=== PATIENT | female | born 1960 | race African-American/Black ===

== ENCOUNTER 2017-09-17 13:13 | Inpatient (IN) | payer MEDICAID ==
[~2017-09-17] VITALS: Ht 152.4 cm; Wt 44.8 kg
[2017-09-17] MEDS ORDERED: SODIUM CHLORIDE 0.9% 1,000 ML IVB ONE (13:47)
[2017-09-17] MEDS ORDERED: MORPHINE SULF INJ 2 MG/ML SYRINGE 1ML IV ONE (14:15)
[2017-09-17] MEDS ORDERED: ONDANSETRON HCL 4 MG/2 ML VIAL IV ONE (14:15)
[2017-09-17 14:20] LABS: Basophils # (auto) 0.1 uL; Eosinophils # (auto) 0 uL; Eosinophils % (auto) 0.3 % (0.0-7.0); Hematocrit 42.4 % (36.0-46.0); Hemoglobin 14.3 g/dL (12.2-16.2); Lymphocytes % (auto) 35.5 % (10.0-50.0); Mean Corpuscular Hemoglobin 31.7 pg (28.0-32.0); Mean Corpuscular Hgb Conc. 33.7 g/dL (32.0-36.0); Mean Corpuscular Volume 94.1 fL (80.0-100.0); Monocytes # (auto) 0.3 uL; Monocytes % (auto) 5.4 % (0.0-12.0); Neutrophils # (auto) 3.2 uL; Neutrophils % (auto) 57.8 % (37.0-80.0); Nucleated Red Blood Cells % 0.2 %; Platelet Count (auto) 280 10^3/uL (140-450); Red Cell Distribution Width 15.5 % (11.8-14.3); White Blood Cell 5.6 10^3/uL (4.4-10.8)
[2017-09-17 14:34] LABS: Albumin 4.2 g/dL (3.4-5.0); BUN/Creatinine Ratio 21.9; Bilirubin, Total 0.8 mg/dL (0.2-1.0); Calcium 9.7 mg/dL (8.5-10.1); Total Protein 8.3 g/dL (6.4-8.2)
[2017-09-17 14:36] LABS: INR 1.05 (0.9-1.15); Partial Thromboplastin Time 22.5 sec (23.78-33.04); Prothrombin Time 11.2 sec (9.27-12.13)
[2017-09-17 14:38] LABS: Potassium 2.6 mmol/L (3.5-5.1)
[2017-09-17 14:42] LABS: Magnesium 2.1 mg/dL (1.6-2.6)
[2017-09-17 14:45] LABS: Urine Bacteria NONE SEEN /hpf (None Seen); Urine Blood Negative /uL (Negative); Urine Mucus FEW (None Seen); Urine WBC 2 /hpf (0 - 5)
[2017-09-17 14:46] LABS: Amylase 57 U/L (25-115); Lipase 69 U/L (73-393)
[2017-09-17 15:56] LABS: Lactic Acid w/Reflex 2.5 mmol/L (0.4-2.0)
[2017-09-17] MEDS ORDERED: POTASSIUM CHL 20 Meq TABLET PO ONE ×2 (16:15)
[2017-09-17] MEDS ORDERED: MORPHINE SULF INJ 2 MG/ML SYRINGE 1ML IV PRN (17:45)
[2017-09-17] MEDS ORDERED: DOCUSATE SOD 100 MG CAP PO PRN (17:45)
[2017-09-17] MEDS ORDERED: LEVOFLOXACIN 500MG 100 ML IV ONE (17:45)
[2017-09-17] MEDS ORDERED: NITROGLYCERIN 0.4 MG SL TAB SL PRN (17:45)
[2017-09-17] MEDS ORDERED: TRIAMTERENE/HCTZ 37.5/25 MG CAP/TAB PO ONE (18:00)
[2017-09-17 18:57] LABS: Alcohol, Urine < 3.0 mg/dL (0-5); Amphetamine Screen, Urine NEGATIVE (NEGATIVE); Barbiturate Scree,Urine NEGATIVE (NEGATIVE); Benzodiazephine Screen, Urine POSITIVE (NEGATIVE); Cannabinoid Screen, Urine POSITIVE (NEGATIVE); Cocaine Screen, Urine NEGATIVE (NEGATIVE); Opiate Scree,Urine POSITIVE (NEGATIVE); Phencyclidine Screen, Urine NEGATIVE (NEGATIVE)
[2017-09-17] MEDS: ACETAMINOPHEN 325 MG TAB PO PRN ×2 (20:05→21:01)
[2017-09-17] MEDS: ONDANSETRON HCL 4 MG/2 ML VIAL IV PRN ×2 (20:11→21:00)
[2017-09-17 21:42] LABS: BUN/Creatinine Ratio 17.6; Calcium 8.2 mg/dL (8.5-10.1)
[2017-09-17 21:46] LABS: Lactic Acid w/Reflex 2.2 mmol/L (0.4-2.0)
[2017-09-17 22:00] VITALS: BP 140/75
[2017-09-17 22:30] VITALS: BP 140/75
[2017-09-17] MEDS: metroNIDAZOLE 500MG/100ML 100 ML IV SCH (22:36)
[2017-09-17] MEDS: FAMOTIDINE 20 MG TAB PO SCH (22:36)
[2017-09-17] MEDS: MORPHINE SULFATE 4 MG/ML SYR/VIAL IV PRN (22:37)
[2017-09-17] MEDS ORDERED: TRIA37.561 PO (23:27)
[2017-09-17] MEDS ORDERED: HYDR-4683 PO ×2 (23:27)
[2017-09-17] MEDS ORDERED: POTA10TA51 PO (23:27)
[2017-09-17] MEDS ORDERED: AML5T PO (23:27)
[2017-09-18] MEDS: HYDROcodone-ACET 5/325MG TAB PO PRN ×2 (01:19→20:35)
[2017-09-18 05:00] VITALS: BP 124/77
[2017-09-18] MEDS: MORPHINE SULFATE 4 MG/ML SYR/VIAL IV PRN ×3 (05:00→14:41)
[2017-09-18 05:43] LABS: Basophils # (auto) 0 uL; Basophils % (auto) 0.3 % (0.0-2.0); Eosinophils # (auto) 0 uL; Eosinophils % (auto) 0.4 % (0.0-7.0); Hematocrit 37.9 % (36.0-46.0); Hemoglobin 12.9 g/dL (12.2-16.2); Lymphocytes # (auto) 2.5 uL; Lymphocytes % (auto) 47.2 % (10.0-50.0); Mean Corpuscular Hemoglobin 32.1 pg (28.0-32.0); Mean Corpuscular Volume 94.5 fL (80.0-100.0); Monocytes # (auto) 0.4 uL; Monocytes % (auto) 7.8 % (0.0-12.0); Neutrophils # (auto) 2.3 uL; Neutrophils % (auto) 44.3 % (37.0-80.0); Nucleated Red Blood Cells % 0.1 %; Platelet Count (auto) 254 10^3/uL (140-450); Red Blood Cells 4.01 10^6/uL (4.0-5.20); Red Cell Distribution Width 15.4 % (11.8-14.3); White Blood Cell 5.3 10^3/uL (4.4-10.8)
[2017-09-18] MEDS: metroNIDAZOLE 500MG/100ML 100 ML IV SCH ×3 (05:46→22:01)
[2017-09-18 06:08] LABS: Albumin 3.5 g/dL (3.4-5.0); BUN/Creatinine Ratio 12.1; Calcium 8.7 mg/dL (8.5-10.1)
[2017-09-18 06:10] LABS: Potassium 2.7 mmol/L (3.5-5.1)
[2017-09-18 06:11] LABS: Bilirubin, Total 0.8 mg/dL (0.2-1.0)
[2017-09-18] MEDS ORDERED: POTASSIUM CHL 20 Meq TABLET PO ONE (07:00)
[2017-09-18 08:52] VITALS: BP 132/80
[2017-09-18] MEDS: LEVOFLOXACIN 500MG 100 ML IV SCH (09:52)
[2017-09-18] MEDS: ONDANSETRON HCL 4 MG/2 ML VIAL IV PRN ×2 (09:53→14:40)
[2017-09-18] MEDS: amLODIPine BESYLATE 5 MG TAB PO SCH (09:55)
[2017-09-18] MEDS: TRIAMTERENE/HCTZ 37.5/25 MG CAP/TAB PO SCH (09:56)
[2017-09-18] MEDS: MULTIPLE VITAMIN TAB PO SCH (09:57)
[2017-09-18] MEDS: FAMOTIDINE 20 MG TAB PO SCH (09:57)
[2017-09-18 13:00] VITALS: BP 136/84
[2017-09-18] MEDS ORDERED: PANTOPRAZOLE 40 MG TAB PO ONE (14:45)
[2017-09-18 17:00] VITALS: BP 108/78
[2017-09-18] MEDS ORDERED: LORazepam 2MG/ML-1ML VIAL IV PRN (17:00)
[2017-09-18 21:38] VITALS: BP 109/65
[2017-09-18] MEDS: PANTOPRAZOLE 40 MG TAB PO SCH (22:01)
[2017-09-18] MEDS: ZOLPIDEM TARTRATE 5 MG TAB PO PRN (22:22)
[2017-09-19] MEDS: MORPHINE SULFATE 4 MG/ML SYR/VIAL IV PRN ×4 (02:53→21:48)
[2017-09-19 05:00] VITALS: BP 119/77
[2017-09-19] MEDS: metroNIDAZOLE 500MG/100ML 100 ML IV SCH (05:47)
[2017-09-19 07:57] LABS: Lactic Acid w/Reflex 3.9 mmol/L (0.4-2.0)
[2017-09-19 07:57] LABS: BUN/Creatinine Ratio 7.1; Calcium 8.9 mg/dL (8.5-10.1); Magnesium 2.1 mg/dL (1.6-2.6); Potassium 3.4 mmol/L (3.5-5.1)
[2017-09-19 09:00] VITALS: BP 104/69
[2017-09-19] MEDS: PANTOPRAZOLE 40 MG TAB PO SCH ×2 (10:07→21:48)
[2017-09-19] MEDS: amLODIPine BESYLATE 5 MG TAB PO SCH (10:08)
[2017-09-19] MEDS: MULTIPLE VITAMIN TAB PO SCH (10:08)
[2017-09-19] MEDS: TRIAMTERENE/HCTZ 37.5/25 MG CAP/TAB PO SCH (10:08)
[2017-09-19] MEDS: LEVOFLOXACIN 500MG 100 ML IV SCH (10:09)
[2017-09-19 13:00] VITALS: BP 114/73
[2017-09-19 17:00] VITALS: BP 114/78
[2017-09-19] MEDS: ONDANSETRON HCL 4 MG/2 ML VIAL IV PRN (21:48)
[2017-09-19 21:51] VITALS: BP 106/58
[2017-09-20] MEDS: ZOLPIDEM TARTRATE 5 MG TAB PO PRN (00:32)
[2017-09-20 04:42] VITALS: BP 110/75
[2017-09-20] MEDS: HYDROcodone-ACET 5/325MG TAB PO PRN (04:42)
[2017-09-20] MEDS: MORPHINE SULFATE 4 MG/ML SYR/VIAL IV PRN (08:59)
[2017-09-20 09:10] VITALS: BP 103/72
[2017-09-20] MEDS ORDERED: PANT40TA2 PO (09:46)
[2017-09-20] MEDS ORDERED: NITR-48 PO (09:46)
[2017-09-20] MEDS ORDERED: NITROFURANTOIN (MONO) 100 mg CAP PO ONE (10:00)
[2017-09-20] MEDS: TRIAMTERENE/HCTZ 37.5/25 MG CAP/TAB PO SCH (10:00)
[2017-09-20] MEDS: MULTIPLE VITAMIN TAB PO SCH (10:00)
[2017-09-20] MEDS: amLODIPine BESYLATE 5 MG TAB PO SCH (10:00)
[2017-09-20 10:48] VITALS: BP 104/69
[2017-09-20] MEDS: PANTOPRAZOLE 40 MG TAB PO SCH (11:57)
[2017-09-20 12:41] VITALS: BP 95/69
== END 2017-09-20 14:54 | disposition home health service (06) | DRG 720 ==
LOC: ER 13:13 → TELE 13:14 → TELE-CENTR 21:37
PROVIDERS: ADMIT Internal Medicine; ATTEND Internal Medicine
PROC: 4A00X4Z Measurement of Central Nervous Electrical Activity, External Approach (ICD-10-PCS; principal; 2017-09-19)
DX: A41.9 Sepsis, unspecified organism (principal); G93.41 Metabolic encephalopathy; I50.43 Acute on chronic combined systolic (congestive) and diastolic (congestive) heart failure; M84.48XA Pathological fracture, other site, initial encounter for fracture; I11.0 Hypertensive heart disease with heart failure; E87.6 Hypokalemia; J98.11 Atelectasis; N39.0 Urinary tract infection, site not specified; J44.9 Chronic obstructive pulmonary disease, unspecified; K40.90 Unilateral inguinal hernia, without obstruction or gangrene, not specified as recurrent; G89.4 Chronic pain syndrome; A08.4 Viral intestinal infection, unspecified; B95.7 Other staphylococcus as the cause of diseases classified elsewhere; N20.0 Calculus of kidney; Z83.3 Family history of diabetes mellitus; F11.10 Opioid abuse, uncomplicated; F12.10 Cannabis abuse, uncomplicated; F13.10 Sedative, hypnotic or anxiolytic abuse, uncomplicated; Z88.0 Allergy status to penicillin; R31.9 Hematuria, unspecified; I67.2 Cerebral atherosclerosis; W18.39XA Other fall on same level, initial encounter; Y93.89 Activity, other specified; Y92.89 Other specified places as the place of occurrence of the external cause; Y99.8 Other external cause status
CPT/HCPCS: 36415; 51702; 70450; 71045; 71101; 71111; 72146; 72148; 74176; 80048; 80053; 80061; 80307; 81001; 82140; 82150; 83605; 83690; 83735; 84132; 84484; 85025; 85610; 85730; 87040; 87086; 87088; 87186; 93005; 93306; 94761; 95819; 96361; 96365; 96366; 96375; 96376; 97116; 97163; 97530; J1956; J2405; J3490

== ENCOUNTER 2017-10-22 09:13 | Inpatient (IN) | payer MEDICAID ==
[~2017-10-22] VITALS: Ht 160 cm; Wt 44.8 kg
[~2017-10-22 09:13] MED LIST: AML5T PO; HYDR-4683 PO; NITR100C44 PO; PANT40TA2 PO; POTA10TA51 PO; TRIA37.561 PO
[2017-10-22 10:54] LABS: Basophils # (auto) 0 uL; Basophils % (auto) 0.7 % (0.0-2.0); Eosinophils # (auto) 0 uL; Eosinophils % (auto) 0.2 % (0.0-7.0); Hematocrit 36.6 % (36.0-46.0); Lymphocytes # (auto) 2.3 uL; Lymphocytes % (auto) 48.3 % (10.0-50.0); Mean Corpuscular Hemoglobin 31.7 pg (28.0-32.0); Mean Corpuscular Hgb Conc. 32.7 g/dL (32.0-36.0); Mean Corpuscular Volume 96.8 fL (80.0-100.0); Monocytes # (auto) 0.4 uL; Monocytes % (auto) 7.8 % (0.0-12.0); Nucleated Red Blood Cells % 0.1 %; Platelet Count (auto) 275 10^3/uL (140-450); Red Blood Cells 3.79 10^6/uL (4.0-5.20); Red Cell Distribution Width 15.9 % (11.8-14.3); White Blood Cell 4.7 10^3/uL (4.4-10.8)
[2017-10-22 11:09] LABS: Partial Thromboplastin Time 24.1 sec (23.78-33.04); Prothrombin Time 10.7 sec (9.27-12.13)
[2017-10-22 11:17] LABS: Alanine Aminotransferase 30 U/L (13-56); Albumin 3.3 g/dL (3.4-5.0); Alkaline Phosphatase 50 U/L (45-117); Amylase 53 U/L (25-115); Anion Gap 2 (5-15); Aspartate Aminotransferase 24 U/L (15-37); BUN/Creatinine Ratio 12.9; Bilirubin, Total 0.2 mg/dL (0.2-1.0); Blood Urea Nitrogen 9 mg/dL (7-18); Calcium 8.4 mg/dL (8.5-10.1); Carbon Dioxide 32 mmol/L (21-32); Chloride 110 mmol/L (98-107); GFR African American 111 mL/min; GFR Non-African American 92 mL/min; Glucose 85 mg/dL (74-106); Lipase 149 U/L (73-393); Magnesium 2.9 mg/dL (1.6-2.6); Potassium 3.3 mmol/L (3.5-5.1); Sodium 144 mmol/L (136-145); Total Protein 6.7 g/dL (6.4-8.2)
[2017-10-22] MEDS ORDERED: SODIUM CHLORIDE 0.9% 1,000 ML IV ONE (11:29)
[2017-10-22] MEDS ORDERED: SODIUM CHLORIDE 0.9% 500 ML IVB ONE (11:29)
[2017-10-22] MEDS ORDERED: PROMETHAZINE HCL 25 MG/ML 1ML IV PRN (11:30)
[2017-10-22] MEDS ORDERED: KETOROLAC TROMETH 30 MG/ML 1ML VIAL IV ONE (11:30)
[2017-10-22] MEDS ORDERED: POTASSIUM EFFERVESENT TAB 25 MEQ PO ONE (12:15)
[2017-10-22 16:14] LABS: Urine Bacteria FEW /hpf (None Seen); Urine Blood Negative /uL (Negative); Urine Specific Gravity 1.006 (1.001-1.035); Urine WBC <1 /hpf (0 - 5)
[2017-10-22] MEDS ORDERED: HYDROcodone-ACET 7.5/325MG TAB PO ONE (17:45)
[2017-10-22] MEDS ORDERED: cefTRIAXone 1GM/10ml IVPUSH 10 ML IV ONE (18:30)
[2017-10-22] MEDS ORDERED: FAMOTIDINE 20 MG TAB PO ONE (18:45)
[2017-10-22] MEDS ORDERED: cloNIDine HCL 0.1 MG TAB PO PRN (18:45)
[2017-10-22] MEDS ORDERED: PANTOPRAZOLE 40 MG TAB PO ONE (18:45)
[2017-10-22] MEDS ORDERED: ACETAMINOPHEN 325 MG TAB PO PRN (19:00)
[2017-10-22] MEDS ORDERED: MORPHINE SULF INJ 2 MG/ML SYRINGE 1ML IV PRN ×2 (19:00)
[2017-10-22] MEDS ORDERED: NITROGLYCERIN 0.4 MG SL TAB SL PRN (19:00)
[2017-10-22] MEDS ORDERED: LORazepam 2MG/ML-1ML VIAL IV PRN (19:00)
[2017-10-22] MEDS: SODIUM CHLORIDE 0.9% 1,000 ML IV SCH (19:01)
[2017-10-22] MEDS: ONDANSETRON HCL 4 MG/2 ML VIAL IV PRN (20:28)
[2017-10-22 22:00] VITALS: BP 146/92
[2017-10-22] MEDS ORDERED: DIA5T PO (23:09)
[2017-10-23] VITALS (7 sets, daily range): BP systolic 112–146; BP diastolic 56–94
[2017-10-23] MEDS: IPRATROPIUM BROM 0.5 MG/2.5ML INH SOL NEB SCH ×5 (00:42→23:11)
[2017-10-23] MEDS: ALBUTEROL SULF 2.5 MG/0.5ML(0.5%) NEB SOLN NEB SCH ×5 (00:42→23:11)
[2017-10-23] MEDS ORDERED: KETOROLAC TROMETH 30 MG/ML 1ML VIAL IV ONE ×2 (04:00→04:15)
[2017-10-23] MEDS: SODIUM CHLORIDE 0.9% 1,000 ML IV SCH ×3 (04:33→21:38)
[2017-10-23] MEDS: ONDANSETRON HCL 4 MG/2 ML VIAL IV PRN ×2 (04:33→16:53)
[2017-10-23 07:27] LABS: Hematocrit 40.2 % (36.0-46.0); Hemoglobin 13.3 g/dL (12.2-16.2); Mean Corpuscular Hemoglobin 31.7 pg (28.0-32.0); Mean Corpuscular Volume 96.2 fL (80.0-100.0); Platelet Count (auto) 241 10^3/uL (140-450); Red Blood Cells 4.18 10^6/uL (4.0-5.20); Red Cell Distribution Width 15.9 % (11.8-14.3); White Blood Cell 5.5 10^3/uL (4.4-10.8)
[2017-10-23 07:36] LABS: Band Neutrophils % (manual) 0; Basophils % (manual) 0 (0.0-2.0); Blast Cells 0; Eosinophils % (manual) 0 (0-7); Metamyelocytes % 0; Myelocytes % 0; Promyelocytes % 0; Reactive Lymphocytes 0
[2017-10-23 07:51] LABS: Lymphocytes % (manual) 65 (10.0-50.0); Monocytes % (manual) 4 (0-12)
[2017-10-23] MEDS ORDERED: cefTRIAXone 1GM/10ml IVPUSH 10 ML IV SCH (09:00)
[2017-10-23] MEDS: TRIAMTERENE/HCTZ 37.5/25 MG CAP/TAB PO SCH (09:53)
[2017-10-23] MEDS: HYDROcodone-ACET 5/325MG TAB PO PRN ×2 (09:55→13:09)
[2017-10-23] MEDS ORDERED: FAMOTIDINE 20 MG TAB PO SCH (10:00)
[2017-10-23] MEDS ORDERED: PANTOPRAZOLE 40 MG TAB PO SCH (10:00)
[2017-10-23] MEDS: MULTIPLE VITAMIN TAB PO SCH (10:01)
[2017-10-23] MEDS: amLODIPine BESYLATE 5 MG TAB PO SCH (10:01)
[2017-10-23] MEDS: POTASSIUM CHL 10 Meq TABLET PO SCH (10:02)
[2017-10-23] MEDS ORDERED: GASTROGRAFIN 30 ML SOL ONE (10:42)
[2017-10-23] MEDS ORDERED: IOHEXOL 300 MG/ML 100ML BOTTLE IJ ONE (10:43)
[2017-10-23 13:11] LABS: Anion Gap 7 (5-15); BUN/Creatinine Ratio 11.3; Blood Urea Nitrogen 7 mg/dL (7-18); Carbon Dioxide 28 mmol/L (21-32); Chloride 103 mmol/L (98-107); GFR African American 128 mL/min; GFR Non-African American 105 mL/min; Glucose 78 mg/dL (74-106); Potassium 4.5 mmol/L (3.5-5.1); Sodium 138 mmol/L (136-145)
[2017-10-23 13:14] LABS: Alanine Aminotransferase 30 U/L (13-56); Albumin 3.6 g/dL (3.4-5.0); Alkaline Phosphatase 54 U/L (45-117); Aspartate Aminotransferase 20 U/L (15-37); Bilirubin, Total 0.4 mg/dL (0.2-1.0); Calcium 8.8 mg/dL (8.5-10.1); Total Protein 7.3 g/dL (6.4-8.2)
[2017-10-23] MEDS: ACETAMINOPHEN/CODEINE#3 (300/30mg) TAB PO PRN (16:52)
[2017-10-23] MEDS: PANTOPRAZOLE 40 MG TAB PO SCH (21:38)
[2017-10-24] MEDS: ACETAMINOPHEN/CODEINE#3 (300/30mg) TAB PO PRN ×3 (00:13→15:57)
[2017-10-24] MEDS: ONDANSETRON HCL 4 MG/2 ML VIAL IV PRN ×4 (00:13→20:18)
[2017-10-24 04:55] VITALS: BP 102/66
[2017-10-24] MEDS: ALBUTEROL SULF 2.5 MG/0.5ML(0.5%) NEB SOLN NEB SCH ×3 (05:56→19:45)
[2017-10-24] MEDS: IPRATROPIUM BROM 0.5 MG/2.5ML INH SOL NEB SCH ×3 (05:56→19:45)
[2017-10-24 06:20] LABS: Basophils # (auto) 0 uL; Basophils % (auto) 0.7 % (0.0-2.0); Eosinophils # (auto) 0 uL; Eosinophils % (auto) 0.3 % (0.0-7.0); Hematocrit 38.5 % (36.0-46.0); Lymphocytes % (auto) 51.6 % (10.0-50.0); Mean Corpuscular Hemoglobin 32.8 pg (28.0-32.0); Mean Corpuscular Hgb Conc. 33.8 g/dL (32.0-36.0); Monocytes # (auto) 0.3 uL; Monocytes % (auto) 7.3 % (0.0-12.0); Neutrophils # (auto) 1.5 uL; Neutrophils % (auto) 40.1 % (37.0-80.0); Nucleated Red Blood Cells % 0.4 %; Platelet Count (auto) 264 10^3/uL (140-450); Red Blood Cells 3.97 10^6/uL (4.0-5.20); Red Cell Distribution Width 15.9 % (11.8-14.3); White Blood Cell 3.8 10^3/uL (4.4-10.8)
[2017-10-24 06:41] LABS: BUN/Creatinine Ratio 8.1; Calcium 8.7 mg/dL (8.5-10.1); Potassium 4.3 mmol/L (3.5-5.1)
[2017-10-24] MEDS: SODIUM CHLORIDE 0.9% 1,000 ML IV SCH ×3 (07:05→20:18)
[2017-10-24 09:00] VITALS: BP 127/79
[2017-10-24] MEDS: POTASSIUM CHL 10 Meq TABLET PO SCH (09:29)
[2017-10-24] MEDS: PANTOPRAZOLE 40 MG TAB PO SCH ×2 (09:29→20:17)
[2017-10-24] MEDS: amLODIPine BESYLATE 5 MG TAB PO SCH (09:30)
[2017-10-24] MEDS: MULTIPLE VITAMIN TAB PO SCH (09:30)
[2017-10-24] MEDS: TRIAMTERENE/HCTZ 37.5/25 MG CAP/TAB PO SCH (09:33)
[2017-10-24] MEDS ORDERED: GOLYTELY 4L KIT PO ONE (12:00)
[2017-10-24 17:00] VITALS: BP 156/95
[2017-10-24] MEDS: TEMAZEPAM 15 MG CAP PO PRN (20:17)
[2017-10-24 22:09] VITALS: BP 122/75
[2017-10-25] MEDS: ALBUTEROL SULF 2.5 MG/0.5ML(0.5%) NEB SOLN NEB SCH ×3 (01:16→11:25)
[2017-10-25] MEDS: IPRATROPIUM BROM 0.5 MG/2.5ML INH SOL NEB SCH ×4 (01:16→20:03)
[2017-10-25 04:46] VITALS: BP 106/63
[2017-10-25] MEDS: SODIUM CHLORIDE 0.9% 1,000 ML IV SCH (05:37)
[2017-10-25] MEDS: ACETAMINOPHEN/CODEINE#3 (300/30mg) TAB PO PRN ×3 (07:46→21:39)
[2017-10-25] MEDS: ONDANSETRON HCL 4 MG/2 ML VIAL IV PRN ×4 (07:47→21:38)
[2017-10-25 07:54] LABS: Basophils # (auto) 0 uL; Basophils % (auto) 1.1 % (0.0-2.0); Eosinophils # (auto) 0 uL; Eosinophils % (auto) 0.4 % (0.0-7.0); Hematocrit 40.3 % (36.0-46.0); Hemoglobin 13.5 g/dL (12.2-16.2); Lymphocytes # (auto) 1.6 uL; Lymphocytes % (auto) 41.6 % (10.0-50.0); Mean Corpuscular Hemoglobin 32.9 pg (28.0-32.0); Mean Corpuscular Hgb Conc. 33.5 g/dL (32.0-36.0); Mean Corpuscular Volume 98.2 fL (80.0-100.0); Monocytes # (auto) 0.2 uL; Monocytes % (auto) 6.2 % (0.0-12.0); Neutrophils % (auto) 50.7 % (37.0-80.0); Nucleated Red Blood Cells % 0.1 %; Platelet Count (auto) 292 10^3/uL (140-450); Red Cell Distribution Width 16.1 % (11.8-14.3); White Blood Cell 3.9 10^3/uL (4.4-10.8)
[2017-10-25 08:08] LABS: BUN/Creatinine Ratio 5.6; Calcium 9.1 mg/dL (8.5-10.1)
[2017-10-25 08:59] VITALS: BP 104/78
[2017-10-25] MEDS: MULTIPLE VITAMIN TAB PO SCH (09:50)
[2017-10-25] MEDS: amLODIPine BESYLATE 5 MG TAB PO SCH (09:50)
[2017-10-25] MEDS: TRIAMTERENE/HCTZ 37.5/25 MG CAP/TAB PO SCH (09:51)
[2017-10-25] MEDS: POTASSIUM CHL 10 Meq TABLET PO SCH (09:51)
[2017-10-25] MEDS: PANTOPRAZOLE 40 MG TAB PO SCH ×2 (09:51→21:39)
[2017-10-25 13:00] VITALS: BP 120/78
[2017-10-25] MEDS ORDERED: fentaNYL CITRATE 100 MCG/2 ML VL ONE (13:09)
[2017-10-25] MEDS ORDERED: MIDAZOLAM HCL 1MG/1ML-2 ML VIAL ONE (13:09)
[2017-10-25] MEDS ORDERED: MEPERIDINE HCL (50 MG/ML) 1 ML VIAL ONE (13:10)
[2017-10-25] MEDS ORDERED: PROPOFOL 10 MG/ML 20 ML IV ONE (13:18)
[2017-10-25] MEDS ORDERED: IPRATROPIUM BROM 0.5 MG/2.5ML INH SOL NEB PRN (16:15)
[2017-10-25] MEDS ORDERED: MORPHINE SULF INJ 2 MG/ML SYRINGE 1ML IV PRN (16:15)
[2017-10-25] MEDS ORDERED: ALBUTEROL SULF 2.5 MG/0.5ML(0.5%) NEB SOLN NEB PRN (16:15)
[2017-10-25 17:26] VITALS: BP 120/78
[2017-10-25 21:32] VITALS: BP 109/70
[2017-10-25] MEDS: TEMAZEPAM 15 MG CAP PO PRN (21:39)
[2017-10-26] MEDS ORDERED: KETOROLAC TROMETH 30 MG/ML 1ML VIAL IV ONE (02:45)
[2017-10-26 05:00] VITALS: BP 120/72
[2017-10-26 06:34] LABS: Basophils # (auto) 0 uL; Basophils % (auto) 0.4 % (0.0-2.0); Eosinophils # (auto) 0 uL; Eosinophils % (auto) 0.3 % (0.0-7.0); Hematocrit 35.8 % (36.0-46.0); Hemoglobin 12.2 g/dL (12.2-16.2); Lymphocytes # (auto) 1.7 uL; Lymphocytes % (auto) 25.1 % (10.0-50.0); Mean Corpuscular Volume 96.9 fL (80.0-100.0); Monocytes # (auto) 0.4 uL; Monocytes % (auto) 5.9 % (0.0-12.0); Neutrophils # (auto) 4.7 uL; Neutrophils % (auto) 68.3 % (37.0-80.0); Nucleated Red Blood Cells % 0.1 %; Platelet Count (auto) 256 10^3/uL (140-450); Red Cell Distribution Width 15.7 % (11.8-14.3); White Blood Cell 6.9 10^3/uL (4.4-10.8)
[2017-10-26 06:45] LABS: BUN/Creatinine Ratio 9.8; Calcium 8.7 mg/dL (8.5-10.1); Potassium 4.8 mmol/L (3.5-5.1)
[2017-10-26] MEDS: ONDANSETRON HCL 4 MG/2 ML VIAL IV PRN ×4 (07:43→20:17)
[2017-10-26] MEDS: ACETAMINOPHEN/CODEINE#3 (300/30mg) TAB PO PRN ×5 (07:43→20:17)
[2017-10-26 08:40] VITALS: BP 131/79
[2017-10-26 08:47] VITALS: BP 131/79
[2017-10-26] MEDS: TRIAMTERENE/HCTZ 37.5/25 MG CAP/TAB PO SCH (09:43)
[2017-10-26] MEDS: POTASSIUM CHL 10 Meq TABLET PO SCH (09:43)
[2017-10-26] MEDS: MULTIPLE VITAMIN TAB PO SCH (09:43)
[2017-10-26] MEDS: PANTOPRAZOLE 40 MG TAB PO SCH ×2 (09:44→22:42)
[2017-10-26] MEDS: amLODIPine BESYLATE 5 MG TAB PO SCH (09:44)
[2017-10-26 13:14] VITALS: BP 126/72
[2017-10-26 16:28] VITALS: BP 123/75
[2017-10-26] MEDS: Ensure Enlive Chocolate 8oz Bottle PO SCH (18:00)
[2017-10-26 21:56] VITALS: BP 113/77
[2017-10-27] MEDS: ACETAMINOPHEN/CODEINE#3 (300/30mg) TAB PO PRN ×5 (00:19→22:03)
[2017-10-27] MEDS: ZOLPIDEM TARTRATE 5 MG TAB PO PRN (00:19)
[2017-10-27] MEDS: ONDANSETRON HCL 4 MG/2 ML VIAL IV PRN ×5 (00:19→22:02)
[2017-10-27 06:15] LABS: Basophils # (auto) 0 uL; Basophils % (auto) 0.9 % (0.0-2.0); Eosinophils # (auto) 0 uL; Eosinophils % (auto) 0.9 % (0.0-7.0); Hematocrit 41.2 % (36.0-46.0); Hemoglobin 13.9 g/dL (12.2-16.2); Lymphocytes # (auto) 1.2 uL; Lymphocytes % (auto) 39.7 % (10.0-50.0); Mean Corpuscular Hemoglobin 32.6 pg (28.0-32.0); Mean Corpuscular Hgb Conc. 33.7 g/dL (32.0-36.0); Mean Corpuscular Volume 96.8 fL (80.0-100.0); Monocytes # (auto) 0.2 uL; Monocytes % (auto) 5.9 % (0.0-12.0); Neutrophils # (auto) 1.6 uL; Neutrophils % (auto) 52.6 % (37.0-80.0); Nucleated Red Blood Cells % 0.1 %; Platelet Count (auto) 254 10^3/uL (140-450); Red Blood Cells 4.26 10^6/uL (4.0-5.20); Red Cell Distribution Width 15.5 % (11.8-14.3); White Blood Cell 3.1 10^3/uL (4.4-10.8)
[2017-10-27 06:29] LABS: BUN/Creatinine Ratio 15.1; Calcium 9.1 mg/dL (8.5-10.1); Potassium 4.6 mmol/L (3.5-5.1)
[2017-10-27 08:00] VITALS: BP 131/79
[2017-10-27] MEDS: PANTOPRAZOLE 40 MG TAB PO SCH ×2 (08:53→22:02)
[2017-10-27] MEDS: TRIAMTERENE/HCTZ 37.5/25 MG CAP/TAB PO SCH (08:53)
[2017-10-27] MEDS: MULTIPLE VITAMIN TAB PO SCH (08:53)
[2017-10-27] MEDS: POTASSIUM CHL 10 Meq TABLET PO SCH (08:53)
[2017-10-27] MEDS: amLODIPine BESYLATE 5 MG TAB PO SCH (08:54)
[2017-10-27] MEDS: Ensure Enlive Chocolate 8oz Bottle PO SCH ×2 (08:54→17:43)
[2017-10-27 08:57] VITALS: BP 120/80
[2017-10-27 13:19] VITALS: BP 117/63
[2017-10-27 17:31] VITALS: BP 109/80
[2017-10-27 22:00] VITALS: BP 114/78
[2017-10-28 05:00] VITALS: BP 113/71
[2017-10-28 07:38] LABS: Basophils # (auto) 0 uL; Basophils % (auto) 0.6 % (0.0-2.0); Eosinophils # (auto) 0 uL; Eosinophils % (auto) 0.9 % (0.0-7.0); Hematocrit 44.5 % (36.0-46.0); Hemoglobin 14.6 g/dL (12.2-16.2); Lymphocytes # (auto) 1.4 uL; Lymphocytes % (auto) 49.6 % (10.0-50.0); Mean Corpuscular Hemoglobin 31.9 pg (28.0-32.0); Mean Corpuscular Hgb Conc. 32.9 g/dL (32.0-36.0); Monocytes # (auto) 0.3 uL; Monocytes % (auto) 8.8 % (0.0-12.0); Neutrophils # (auto) 1.1 uL; Neutrophils % (auto) 40.1 % (37.0-80.0); Nucleated Red Blood Cells % 0.1 %; Platelet Count (auto) 262 10^3/uL (140-450); Red Blood Cells 4.59 10^6/uL (4.0-5.20); Red Cell Distribution Width 15.7 % (11.8-14.3); White Blood Cell 2.9 10^3/uL (4.4-10.8)
[2017-10-28 08:00] VITALS: BP 114/72
[2017-10-28 08:07] LABS: BUN/Creatinine Ratio 19.7; Calcium 9.2 mg/dL (8.5-10.1); Potassium 4.3 mmol/L (3.5-5.1)
[2017-10-28] MEDS: Ensure Enlive Chocolate 8oz Bottle PO SCH ×2 (08:21→17:59)
[2017-10-28 09:00] VITALS: BP 114/72
[2017-10-28] MEDS: POTASSIUM CHL 10 Meq TABLET PO SCH (09:27)
[2017-10-28] MEDS: TRIAMTERENE/HCTZ 37.5/25 MG CAP/TAB PO SCH (09:27)
[2017-10-28] MEDS: MULTIPLE VITAMIN TAB PO SCH (09:27)
[2017-10-28] MEDS: PANTOPRAZOLE 40 MG TAB PO SCH ×2 (09:27→22:20)
[2017-10-28] MEDS: amLODIPine BESYLATE 5 MG TAB PO SCH (09:28)
[2017-10-28] MEDS: ACETAMINOPHEN/CODEINE#3 (300/30mg) TAB PO PRN ×4 (09:52→22:21)
[2017-10-28] MEDS: ONDANSETRON HCL 4 MG/2 ML VIAL IV PRN ×4 (09:55→22:20)
[2017-10-28 13:00] VITALS: BP 107/70
[2017-10-28 17:00] VITALS: BP 104/72
[2017-10-28 21:25] VITALS: BP 110/64
[2017-10-28] MEDS: ZOLPIDEM TARTRATE 5 MG TAB PO PRN (22:55)
[2017-10-29] MEDS: ONDANSETRON HCL 4 MG/2 ML VIAL IV PRN ×4 (01:57→17:50)
[2017-10-29] MEDS: ACETAMINOPHEN/CODEINE#3 (300/30mg) TAB PO PRN ×2 (01:58→06:26)
[2017-10-29 05:30] VITALS: BP 115/69
[2017-10-29 08:30] VITALS: BP 115/75
[2017-10-29 09:00] VITALS: BP 115/75
[2017-10-29] MEDS: PANTOPRAZOLE 40 MG TAB PO SCH ×2 (09:35→21:47)
[2017-10-29] MEDS: MULTIPLE VITAMIN TAB PO SCH (09:35)
[2017-10-29] MEDS: TRIAMTERENE/HCTZ 37.5/25 MG CAP/TAB PO SCH (09:36)
[2017-10-29] MEDS: POTASSIUM CHL 10 Meq TABLET PO SCH (09:37)
[2017-10-29] MEDS: amLODIPine BESYLATE 5 MG TAB PO SCH (09:37)
[2017-10-29] MEDS: Ensure Enlive Chocolate 8oz Bottle PO SCH ×2 (10:14→18:05)
[2017-10-29] MEDS: MORPHINE SULF INJ 2 MG/ML SYRINGE 1ML IV PRN ×2 (10:42→17:50)
[2017-10-29 13:00] VITALS: BP 111/74
[2017-10-29 13:01] LABS: Basophils # (auto) 0 uL; Basophils % (auto) 1.1 % (0.0-2.0); Eosinophils # (auto) 0.1 uL; Eosinophils % (auto) 1.6 % (0.0-7.0); Hematocrit 47.7 % (36.0-46.0); Lymphocytes # (auto) 1.7 uL; Lymphocytes % (auto) 50.5 % (10.0-50.0); Mean Corpuscular Hemoglobin 32.7 pg (28.0-32.0); Mean Corpuscular Hgb Conc. 33.5 g/dL (32.0-36.0); Mean Corpuscular Volume 97.7 fL (80.0-100.0); Monocytes # (auto) 0.3 uL; Monocytes % (auto) 8.7 % (0.0-12.0); Neutrophils # (auto) 1.2 uL; Neutrophils % (auto) 38.1 % (37.0-80.0); Nucleated Red Blood Cells % 0.3 %; Platelet Count (auto) 266 10^3/uL (140-450); Red Blood Cells 4.88 10^6/uL (4.0-5.20); White Blood Cell 3.3 10^3/uL (4.4-10.8)
[2017-10-29 13:19] LABS: Calcium 9.3 mg/dL (8.5-10.1); Potassium 4.4 mmol/L (3.5-5.1)
[2017-10-29 13:21] LABS: BUN/Creatinine Ratio 21.3
[2017-10-29 17:29] VITALS: BP 109/65
[2017-10-29 22:00] VITALS: BP 114/73
[2017-10-30] MEDS: ZOLPIDEM TARTRATE 5 MG TAB PO PRN (00:12)
[2017-10-30] MEDS: MORPHINE SULF INJ 2 MG/ML SYRINGE 1ML IV PRN ×3 (00:13→20:01)
[2017-10-30] MEDS: ONDANSETRON HCL 4 MG/2 ML VIAL IV PRN ×5 (00:14→20:01)
[2017-10-30] MEDS: ACETAMINOPHEN/CODEINE#3 (300/30mg) TAB PO PRN ×2 (04:55→16:18)
[2017-10-30 04:56] VITALS: BP 99/68
[2017-10-30 05:49] LABS: Basophils # (auto) 0 uL; Basophils % (auto) 0.8 % (0.0-2.0); Eosinophils # (auto) 0.1 uL; Eosinophils % (auto) 2.7 % (0.0-7.0); Hematocrit 43.7 % (36.0-46.0); Hemoglobin 14.6 g/dL (12.2-16.2); Lymphocytes # (auto) 1.7 uL; Lymphocytes % (auto) 47.8 % (10.0-50.0); Mean Corpuscular Hemoglobin 32.5 pg (28.0-32.0); Mean Corpuscular Hgb Conc. 33.5 g/dL (32.0-36.0); Mean Corpuscular Volume 97.1 fL (80.0-100.0); Monocytes # (auto) 0.4 uL; Monocytes % (auto) 11.3 % (0.0-12.0); Neutrophils # (auto) 1.4 uL; Neutrophils % (auto) 37.4 % (37.0-80.0); Nucleated Red Blood Cells % 0.3 %; Platelet Count (auto) 276 10^3/uL (140-450); Red Cell Distribution Width 15.3 % (11.8-14.3); White Blood Cell 3.6 10^3/uL (4.4-10.8)
[2017-10-30 06:08] LABS: BUN/Creatinine Ratio 24.3; Calcium 9.3 mg/dL (8.5-10.1); Potassium 3.7 mmol/L (3.5-5.1)
[2017-10-30] MEDS: Ensure Enlive Chocolate 8oz Bottle PO SCH ×2 (08:00→18:13)
[2017-10-30] MEDS ORDERED: ADENOSINE 39 MG in GIVE UN-DILUTED 0 ML IV STA (08:53)
[2017-10-30 09:00] VITALS: BP 126/70
[2017-10-30 10:48] VITALS: BP 125/89
[2017-10-30] MEDS: amLODIPine BESYLATE 5 MG TAB PO SCH (11:47)
[2017-10-30] MEDS: PANTOPRAZOLE 40 MG TAB PO SCH ×2 (11:47→22:01)
[2017-10-30] MEDS: POTASSIUM CHL 10 Meq TABLET PO SCH (11:47)
[2017-10-30] MEDS: MULTIPLE VITAMIN TAB PO SCH (11:47)
[2017-10-30] MEDS: TRIAMTERENE/HCTZ 37.5/25 MG CAP/TAB PO SCH (11:48)
[2017-10-30 13:00] VITALS: BP 122/82
[2017-10-30 17:00] VITALS: BP 111/84
[2017-10-30 22:00] VITALS: BP 109/72
[2017-10-31] MEDS: ACETAMINOPHEN/CODEINE#3 (300/30mg) TAB PO PRN ×3 (00:09→18:09)
[2017-10-31] MEDS: ONDANSETRON HCL 4 MG/2 ML VIAL IV PRN ×6 (00:09→21:55)
[2017-10-31] MEDS: ZOLPIDEM TARTRATE 5 MG TAB PO PRN (00:35)
[2017-10-31] MEDS: MORPHINE SULF INJ 2 MG/ML SYRINGE 1ML IV PRN ×3 (04:16→21:56)
[2017-10-31 05:00] VITALS: BP 124/82
[2017-10-31 06:20] LABS: Basophils # (auto) 0 uL; Basophils % (auto) 0.6 % (0.0-2.0); Eosinophils # (auto) 0.1 uL; Hematocrit 44.2 % (36.0-46.0); Lymphocytes # (auto) 1.7 uL; Lymphocytes % (auto) 52.3 % (10.0-50.0); Mean Corpuscular Hemoglobin 32.5 pg (28.0-32.0); Mean Corpuscular Hgb Conc. 33.9 g/dL (32.0-36.0); Mean Corpuscular Volume 95.9 fL (80.0-100.0); Monocytes # (auto) 0.3 uL; Monocytes % (auto) 9.8 % (0.0-12.0); Neutrophils # (auto) 1.1 uL; Neutrophils % (auto) 34.3 % (37.0-80.0); Nucleated Red Blood Cells % 0.2 %; Platelet Count (auto) 277 10^3/uL (140-450); Red Blood Cells 4.61 10^6/uL (4.0-5.20); Red Cell Distribution Width 15.4 % (11.8-14.3); White Blood Cell 3.3 10^3/uL (4.4-10.8)
[2017-10-31 06:38] LABS: Calcium 9.2 mg/dL (8.5-10.1); Potassium 3.8 mmol/L (3.5-5.1)
[2017-10-31 06:40] LABS: BUN/Creatinine Ratio 22.1
[2017-10-31 09:00] VITALS: BP 111/80
[2017-10-31] MEDS: POTASSIUM CHL 10 Meq TABLET PO SCH (09:38)
[2017-10-31] MEDS: PANTOPRAZOLE 40 MG TAB PO SCH ×2 (09:38→21:55)
[2017-10-31] MEDS: MULTIPLE VITAMIN TAB PO SCH (09:38)
[2017-10-31] MEDS: amLODIPine BESYLATE 5 MG TAB PO SCH (09:39)
[2017-10-31] MEDS: TRIAMTERENE/HCTZ 37.5/25 MG CAP/TAB PO SCH (09:42)
[2017-10-31] MEDS: Ensure Enlive Chocolate 8oz Bottle PO SCH ×2 (10:48→18:07)
[2017-10-31 13:00] VITALS: BP 117/80
[2017-10-31 17:00] VITALS: BP 130/87
[2017-10-31 22:00] VITALS: BP 117/84
[2017-10-31] MEDS: ALBUTEROL SULF 2.5 MG/0.5ML(0.5%) NEB SOLN NEB SCH (22:38)
[2017-10-31 23:43] VITALS: BP 130/87
[2017-11-01] MEDS: ZOLPIDEM TARTRATE 5 MG TAB PO PRN (00:15)
[2017-11-01] MEDS: ACETAMINOPHEN/CODEINE#3 (300/30mg) TAB PO PRN ×2 (03:10→11:19)
[2017-11-01 05:00] VITALS: BP 117/79
[2017-11-01 06:15] LABS: Basophils # (auto) 0.1 uL; Basophils % (auto) 1.2 % (0.0-2.0); Eosinophils # (auto) 0.1 uL; Eosinophils % (auto) 3.3 % (0.0-7.0); Hematocrit 44.1 % (36.0-46.0); Lymphocytes % (auto) 46.8 % (10.0-50.0); Mean Corpuscular Hemoglobin 32.7 pg (28.0-32.0); Mean Corpuscular Volume 96.1 fL (80.0-100.0); Monocytes # (auto) 0.4 uL; Monocytes % (auto) 9.5 % (0.0-12.0); Neutrophils # (auto) 1.7 uL; Neutrophils % (auto) 39.2 % (37.0-80.0); Nucleated Red Blood Cells % 0.2 %; Platelet Count (auto) 276 10^3/uL (140-450); Red Blood Cells 4.59 10^6/uL (4.0-5.20); White Blood Cell 4.2 10^3/uL (4.4-10.8)
[2017-11-01] MEDS: ALBUTEROL SULF 2.5 MG/0.5ML(0.5%) NEB SOLN NEB SCH ×3 (06:18→23:22)
[2017-11-01 06:29] LABS: BUN/Creatinine Ratio 23.9; Calcium 9.3 mg/dL (8.5-10.1); Potassium 3.6 mmol/L (3.5-5.1)
[2017-11-01] MEDS: ONDANSETRON HCL 4 MG/2 ML VIAL IV PRN ×2 (07:06→11:23)
[2017-11-01] MEDS: MORPHINE SULF INJ 2 MG/ML SYRINGE 1ML IV PRN ×3 (07:06→21:43)
[2017-11-01 08:35] VITALS: BP 111/79
[2017-11-01] MEDS: MULTIPLE VITAMIN TAB PO SCH (09:45)
[2017-11-01] MEDS: POTASSIUM CHL 10 Meq TABLET PO SCH (09:45)
[2017-11-01] MEDS: PANTOPRAZOLE 40 MG TAB PO SCH ×2 (09:45→21:43)
[2017-11-01] MEDS: TRIAMTERENE/HCTZ 37.5/25 MG CAP/TAB PO SCH (09:46)
[2017-11-01] MEDS: amLODIPine BESYLATE 5 MG TAB PO SCH (09:46)
[2017-11-01] MEDS: Ensure Enlive Chocolate 8oz Bottle PO SCH ×2 (11:19→18:12)
[2017-11-01 13:00] VITALS: BP 112/77
[2017-11-01 17:00] VITALS: BP 115/77
[2017-11-01 20:00] VITALS: BP 124/78
[2017-11-01 22:00] VITALS: BP 124/78
[2017-11-02] MEDS: MORPHINE SULF INJ 2 MG/ML SYRINGE 1ML IV PRN ×3 (03:48→16:54)
[2017-11-02 05:00] VITALS: BP 115/81
[2017-11-02] MEDS: ALBUTEROL SULF 2.5 MG/0.5ML(0.5%) NEB SOLN NEB SCH ×3 (06:04→22:00)
[2017-11-02 07:28] LABS: Basophils # (auto) 0 uL; Basophils % (auto) 1.2 % (0.0-2.0); Eosinophils # (auto) 0.1 uL; Eosinophils % (auto) 3.3 % (0.0-7.0); Hematocrit 44.7 % (36.0-46.0); Hemoglobin 15.1 g/dL (12.2-16.2); Lymphocytes # (auto) 2.1 uL; Lymphocytes % (auto) 52.9 % (10.0-50.0); Mean Corpuscular Hemoglobin 32.7 pg (28.0-32.0); Mean Corpuscular Hgb Conc. 33.8 g/dL (32.0-36.0); Mean Corpuscular Volume 96.7 fL (80.0-100.0); Monocytes # (auto) 0.4 uL; Monocytes % (auto) 9.4 % (0.0-12.0); Neutrophils # (auto) 1.3 uL; Neutrophils % (auto) 33.2 % (37.0-80.0); Nucleated Red Blood Cells % 0.1 %; Platelet Count (auto) 297 10^3/uL (140-450); Red Blood Cells 4.62 10^6/uL (4.0-5.20); Red Cell Distribution Width 15.1 % (11.8-14.3); White Blood Cell 3.9 10^3/uL (4.4-10.8)
[2017-11-02 07:50] LABS: INR 0.98 (0.9-1.15); Prothrombin Time 10.5 sec (9.27-12.13)
[2017-11-02 07:59] LABS: BUN/Creatinine Ratio 25.4; Calcium 9.4 mg/dL (8.5-10.1); Potassium 3.5 mmol/L (3.5-5.1)
[2017-11-02] MEDS: Ensure Enlive Chocolate 8oz Bottle PO SCH ×2 (08:21→17:48)
[2017-11-02] MEDS: ONDANSETRON HCL 4 MG/2 ML VIAL IV PRN ×2 (08:21→14:12)
[2017-11-02 09:00] VITALS: BP 115/76
[2017-11-02] MEDS: PANTOPRAZOLE 40 MG TAB PO SCH ×2 (09:45→21:45)
[2017-11-02] MEDS: MULTIPLE VITAMIN TAB PO SCH (09:45)
[2017-11-02] MEDS: TRIAMTERENE/HCTZ 37.5/25 MG CAP/TAB PO SCH (09:45)
[2017-11-02] MEDS: POTASSIUM CHL 10 Meq TABLET PO SCH (09:45)
[2017-11-02] MEDS: amLODIPine BESYLATE 5 MG TAB PO SCH (09:46)
[2017-11-02 13:00] VITALS: BP 106/73
[2017-11-02] MEDS: ACETAMINOPHEN/CODEINE#3 (300/30mg) TAB PO PRN (14:12)
[2017-11-02] MEDS ORDERED: GOLYTELY 4L KIT PO ONE (14:15)
[2017-11-02 17:00] VITALS: BP 132/95
[2017-11-02] MEDS ORDERED: NEOMYCIN SULFATE 500 MG TAB PO ONE ×3 (18:00→20:00)
[2017-11-02] MEDS ORDERED: ERYTHROMYCIN 250 MG TAB PO ONE ×3 (18:00→20:00)
[2017-11-02 20:00] VITALS: BP 109/77
[2017-11-02 22:00] VITALS: BP 109/77
[2017-11-03] MEDS: MORPHINE SULF INJ 2 MG/ML SYRINGE 1ML IV PRN ×3 (00:15→14:51)
[2017-11-03] MEDS: ONDANSETRON HCL 4 MG/2 ML VIAL IV PRN ×4 (00:22→22:19)
[2017-11-03 05:00] VITALS: BP 109/69
[2017-11-03] MEDS: ALBUTEROL SULF 2.5 MG/0.5ML(0.5%) NEB SOLN NEB SCH ×3 (07:14→22:26)
[2017-11-03 07:17] LABS: Basophils # (auto) 0 uL; Basophils % (auto) 1.1 % (0.0-2.0); Eosinophils # (auto) 0.2 uL; Hematocrit 43.5 % (36.0-46.0); Lymphocytes % (auto) 49.7 % (10.0-50.0); Mean Corpuscular Hemoglobin 32.9 pg (28.0-32.0); Mean Corpuscular Hgb Conc. 34.4 g/dL (32.0-36.0); Mean Corpuscular Volume 95.4 fL (80.0-100.0); Monocytes # (auto) 0.4 uL; Monocytes % (auto) 9.4 % (0.0-12.0); Neutrophils # (auto) 1.4 uL; Neutrophils % (auto) 35.8 % (37.0-80.0); Nucleated Red Blood Cells % 0.2 %; Platelet Count (auto) 309 10^3/uL (140-450); Red Blood Cells 4.56 10^6/uL (4.0-5.20); Red Cell Distribution Width 14.9 % (11.8-14.3)
[2017-11-03 07:29] LABS: BUN/Creatinine Ratio 20.3; Calcium 9.4 mg/dL (8.5-10.1)
[2017-11-03] MEDS: Ensure Enlive Chocolate 8oz Bottle PO SCH ×2 (08:00→18:00)
[2017-11-03] MEDS: D5W/SOD CHL 0.45%/KCL 20MEQ 1,000 ML IV SCH ×2 (08:32→17:38)
[2017-11-03] MEDS: POTASSIUM CHL 20MEQ/100ML 100 ML IV SCH ×2 (08:33→10:24)
[2017-11-03 09:00] VITALS: BP 121/78
[2017-11-03] MEDS: PANTOPRAZOLE 40 MG TAB PO SCH ×2 (09:31→21:19)
[2017-11-03] MEDS: MULTIPLE VITAMIN TAB PO SCH (09:31)
[2017-11-03] MEDS: POTASSIUM CHL 10 Meq TABLET PO SCH (09:31)
[2017-11-03] MEDS: amLODIPine BESYLATE 5 MG TAB PO SCH (09:34)
[2017-11-03] MEDS: TRIAMTERENE/HCTZ 37.5/25 MG CAP/TAB PO SCH (09:34)
[2017-11-03 13:00] VITALS: BP 111/73
[2017-11-03 17:01] VITALS: BP 108/83
[2017-11-03 22:00] VITALS: BP 105/70
[2017-11-03] MEDS: MORPHINE SULFATE 4 MG/ML SYR/VIAL IV PRN (22:20)
[2017-11-03 23:15] VITALS: BP 108/83
[2017-11-04] MEDS: TEMAZEPAM 15 MG CAP PO PRN (02:07)
[2017-11-04] MEDS: D5W/SOD CHL 0.45%/KCL 20MEQ 1,000 ML IV SCH (02:12)
[2017-11-04 05:02] VITALS: BP 114/67
[2017-11-04] MEDS: ALBUTEROL SULF 2.5 MG/0.5ML(0.5%) NEB SOLN NEB SCH (06:00)
[2017-11-04] MEDS: MORPHINE SULFATE 4 MG/ML SYR/VIAL IV PRN (06:58)
[2017-11-04] MEDS: ONDANSETRON HCL 4 MG/2 ML VIAL IV PRN (06:58)
[2017-11-04 08:05] VITALS: BP 128/83
[2017-11-04 08:46] VITALS: BP 128/83
[2017-11-04] MEDS: Ensure Enlive Chocolate 8oz Bottle PO SCH (08:49)
[2017-11-04] MEDS: amLODIPine BESYLATE 5 MG TAB PO SCH (10:00)
[2017-11-04] MEDS: PANTOPRAZOLE 40 MG TAB PO SCH (10:00)
[2017-11-04] MEDS: MULTIPLE VITAMIN TAB PO SCH (10:00)
[2017-11-04] MEDS: TRIAMTERENE/HCTZ 37.5/25 MG CAP/TAB PO SCH (10:00)
[2017-11-04] MEDS: POTASSIUM CHL 10 Meq TABLET PO SCH (10:00)
== END 2017-11-04 11:45 | disposition home or self-care (01) | DRG 241 ==
LOC: ER 09:13 → EDBD 09:13 → TELE 09:14 → TELE-WESTW 21:10 → WEST WING 10-26 08:50
PROVIDERS: ADMIT Internal Medicine; ATTEND Internal Medicine
PROC: 0DB68ZX Excision of Stomach, Via Natural or Artificial Opening Endoscopic, Diagnostic (ICD-10-PCS; principal; 2017-10-25 13:00)
PROC: 0DBL8ZX Excision of Transverse Colon, Via Natural or Artificial Opening Endoscopic, Diagnostic (ICD-10-PCS; 2017-10-25 13:00)
DX: K29.70 Gastritis, unspecified, without bleeding (principal); E44.1 Mild protein-calorie malnutrition; I67.2 Cerebral atherosclerosis; G40.409 Other generalized epilepsy and epileptic syndromes, not intractable, without status epilepticus; D12.3 Benign neoplasm of transverse colon; E87.6 Hypokalemia; E86.0 Dehydration; K63.5 Polyp of colon; E83.51 Hypocalcemia; K64.8 Other hemorrhoids; I10 Essential (primary) hypertension; D63.8 Anemia in other chronic diseases classified elsewhere; J45.909 Unspecified asthma, uncomplicated; G89.29 Other chronic pain; R00.1 Bradycardia, unspecified; E83.41 Hypermagnesemia; K43.9 Ventral hernia without obstruction or gangrene; F17.200 Nicotine dependence, unspecified, uncomplicated; G47.00 Insomnia, unspecified; I25.2 Old myocardial infarction; K40.90 Unilateral inguinal hernia, without obstruction or gangrene, not specified as recurrent; Z82.49 Family history of ischemic heart disease and other diseases of the circulatory system; Z83.3 Family history of diabetes mellitus; Z88.0 Allergy status to penicillin; Z88.6 Allergy status to analgesic agent; Z88.8 Allergy status to other drugs, medicaments and biological substances; K80.80 Other cholelithiasis without obstruction; I25.10 Atherosclerotic heart disease of native coronary artery without angina pectoris; Z68.1 Body mass index [BMI] 19.9 or less, adult
CPT/HCPCS: 36415; 43239; 45380; 70450; 71045; 74177; 78452; 80048; 80053; 81001; 82040; 82150; 82270; 82962; 83690; 83735; 84484; 85007; 85025; 85027; 85610; 85730; 86850; 86900; 86901; 87081; 87086; 93005; 93017; 94640; 95819; 96361; 96374; 96375; 97116; A6257; J0153; J0696; J1885; J2250; J2405; J2704; J3480